=== PATIENT | male | born 1985 | race Caucasian/White ===

== ENCOUNTER 2020-04-09 09:35 | Emergency (ER) | payer SELFPAY ==
[~2020-04-09] VITALS: Ht 175.3 cm; Wt 83.9 kg
[2020-04-09 09:46] VITALS: BP 106/66
[2020-04-09 10:36] VITALS: BP 106/66
--- NOTE | 2020-04-09 10:36 | NUR ---
PATIENT BIB [facility] [place] [employer]. PATIENT EXAMINED BY DR. MENCHACA. PATIENT MEDICALLY CLEARED AND RELEASED IN CUSTODY IN STABLE CONDITION. ORIGINAL PRE-BOOK FORM GIVEN TO OFFICER MONROY.
== END 2020-04-09 10:36 ==
LOC: MED 09:35
DX: Z04.1 Encounter for examination and observation following transport accident (principal); Z02.89 Encounter for other administrative examinations; V43.52XA Car driver injured in collision with other type car in traffic accident, initial encounter; Y93.89 Activity, other specified; Y92.89 Other specified places as the place of occurrence of the external cause; Y99.8 Other external cause status
CPT/HCPCS: 99283